=== PATIENT | male | born 1990 | race Caucasian/White ===

== ENCOUNTER 2018-04-04 16:49 | Emergency (ER) | payer BC ==
[~2018-04-04] VITALS: Ht 182.9 cm; Wt 80.7 kg
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
[2018-04-04 18:35] VITALS: BP 132/95
== END 2018-04-04 18:34 | disposition home or self-care (01) ==
LOC: ER 16:49
DX: S00.93XD Contusion of unspecified part of head, subsequent encounter (principal); W18.39XD Other fall on same level, subsequent encounter
CPT/HCPCS: 70450; 99284-25